=== PATIENT | female | born 1995 | race Caucasian/White ===

== ENCOUNTER 2018-05-01 00:20 | Emergency (ER) | payer MEDICAID, OTHER ==
[~2018-05-01] VITALS: Ht 160 cm; Wt 55.3 kg
[2018-05-01 00:30] VITALS: BP 120/72
--- NOTE | 2018-05-01 00:36 | NUR ---
PT AMBULATED TO BED 7 WITH VSS.
--- NOTE | 2018-05-01 00:42 | NUR ---
Luz miranda in ED - 05/01/18 at 0042 by ALIDA PT AMBULATED TO BED 07.
--- NOTE | 2018-05-01 00:50 | NUR ---
22/F CAME IN ED WITH BROTHER, C/O 10/10 PRESSURE-LIKE INTERMITTENT L SIDED AND L PERIORBITAL HEADACHE, X1 MONTH WORSENING. PT REPORTS INTERMITTENT L EYE FOGGY VISION, AND DIZZINESS. PT REPORTS HAVING AN MRI, AND WAS ONLY RX PAIN MEDS. PT REPORTS TAKING NAPROXEN, XANAX AND TYLENOL #3 WITH LITTLE RELIEF. AOX4, AMBULATORY, RR EVEN AND UNLABORED. PT SPEECH CLEAR, NO FACIAL DROP. HX MIGRAINE, ASTHMA, ANXIETY
[2018-05-01] MEDS ORDERED: NACL 0.9% 1,000 ML IV ONE (01:45)
[2018-05-01] MEDS ORDERED: METOCLOPRAMIDE 10 MG/2 ML INJ VIAL IVP ONE (01:45)
[2018-05-01] MEDS ORDERED: ACETAMINOPHEN EXTRA STRENGTH 500 MG TAB PO ONE (01:45)
[2018-05-01] MEDS ORDERED: diphenhydrAMINE 50 MG/ML VIAL IVP ONE (01:45)
[2018-05-01 02:06] LABS: BASOPHILS % (AUTO) 0.4 % (0.0-2.0); EOSINOPHILS # (AUTO) 0.1 K/uL (0-0.4); EOSINOPHILS % (AUTO) 0.8 % (0.0-4.0); HEMATOCRIT 38.6 % (36-48); HEMOGLOBIN 12.7 g/dL (12.0-16.0); LYMPHOCYTES # (AUTO) 2.5 K/uL (2.5-16.5); LYMPHOCYTES % (AUTO) 32.2 % (20.5-51.1); MEAN CORPUSCULAR HEMOGLOBIN 30 pg (27-31); MEAN CORPUSCULAR HGB CONC 33 g/dL (33-37); MEAN CORPUSCULAR VOLUME 90.1 fL (80-94); MONOCYTES # (AUTO) 0.7 K/uL (0.8-1.0); MONOCYTES % (AUTO) 9.6 % (1.7-9.3); NEUTROPHILS # (AUTO) 4.3 K/uL (1.8-7.7); PLATELET COUNT (AUTO) 233 K/uL (140-450); RED BLOOD CELL COUNT(AUTO) 4.28 MIL/uL (4.20-5.40); RED CELL DISTRIBUTION WIDTH 12.9 % (11.6-13.7); WHITE BLOOD COUNT (AUTO) 7.6 K/uL (4.8-10.8)
[2018-05-01 02:15] LABS: ANION GAP 6.8 (8-16); CREATININE 0.9 mg/dL (0.6-1.3); POTASSIUM 3.8 mmol/L (3.5-5.1)
[2018-05-01 02:21] LABS: ALBUMIN 3.6 g/dL (3.4-5.0); TOTAL BILIRUBIN 0.3 mg/dL (0.0-1.0)
--- NOTE | 2018-05-01 02:30 | NUR ---
PT FAMILY/FRIEND AT BEDSIDE. PT SLEEPING COMFORTABLY IN BED, AROUSABLE TO NAME. PT REPORTS 7/10 L SIDED HEADACHE, REPORTS IMPROVEMENT AFTER MEDS. VSS, ALL NEEDS MET AT THIS TIME.
--- NOTE | 2018-05-01 02:35 | NUR ---
PT TAKEN TO CT
[2018-05-01 03:47] VITALS: BP 104/58
--- NOTE | 2018-05-01 03:47 | NUR ---
Patient discharged with v/s stable. Written and verbal after care instructions given and explained. Patient verbalized understanding. Ambulatory with steady gait. All questions addressed prior to discharge. Advised to follow up with PMD.
== END 2018-05-01 03:47 | disposition home or self-care (01) ==
LOC: MED 00:20
DX: R51 Headache (principal); F41.9 Anxiety disorder, unspecified; Z88.5 Allergy status to narcotic agent
CPT/HCPCS: 36415; 70450; 80053; 81025; 85025; 96361; 96374; 96375; 99284; J1200; J2765; J7030

== ENCOUNTER 2018-06-09 00:54 | Emergency (ER) | payer OTHER ==
[~2018-06-09] VITALS: Ht 160 cm; Wt 55.3 kg
[2018-06-09 01:02] VITALS: BP 108/65
--- NOTE | 2018-06-09 01:02 | NUR ---
TO BED # 5 AMBULATORY, REPORT GIVEN TO PRINCE REYNOSO
--- NOTE | 2018-06-09 01:09 | NUR ---
PT TAKEN TO CHAIR E
--- NOTE | 2018-06-09 01:21 | NUR ---
PT MOVED TO ER BED 8
--- NOTE | 2018-06-09 01:30 | NUR ---
PT BIB SELF C/O LEFT FLANK PAIN RADIATING ACROSS BACK AND ABD W/ "BROWN DISCHARGE". PT DENIES TRAUMA TO AREA. PT LAYING IN BED BROTHER AT BEDSIDE, PT APPEARS TO BE IN NO ACUTE DISTRESS. DENIES UTI SYMPTOMS, PT TOOK TYLENOL AT HOME W/ MINIMAL RELIEF. PMH KIDNEY STONES
--- NOTE | 2018-06-09 02:26 | NUR ---
Dr. Weiss evaluating patient at bedside.
[2018-06-09] MEDS ORDERED: KETOROLAC 30 MG/ML VIAL IM ONE (02:40)
--- NOTE | 2018-06-09 02:50 | NUR ---
PT TO CT SCAN VIA WHEELCHAIR
[2018-06-09 03:17] LABS: BILIRUBIN,URINE NEGATIVE (NEGATIVE); BLOOD, URINE 3+ (NEGATIVE); COLOR,URINE YELLOW (YELLOW); LEUKOCYTE ESTERASE ,URINE 1+ (NEGATIVE); NITRITE, URINE NEGATIVE (NEGATIVE); UGLUCOSE NEGATIVE (NEGATIVE)
[2018-06-09 03:20] LABS: APPEARANCE,URINE SLIGHTLY HAZY (CLEAR)
[2018-06-09 03:58] LABS: ALBUMIN 4.3 g/dL (3.4-5.0); CREATININE 0.8 mg/dL (0.6-1.3); TOTAL BILIRUBIN 0.3 mg/dL (0.0-1.0)
--- NOTE | 2018-06-09 04:08 | NUR ---
Dr. Weiss evaluating patient with female hosiery knitter RN Vishnu Farrell
--- NOTE | 2018-06-09 04:08 | NUR ---
Pelvic exam performed by DR NYE with MYSELF at bedside for entire examination. Patient tolerated procedure WELL. Patient assisted to position of comfort after examination.
[2018-06-09 04:11] LABS: POTASSIUM 3.5 mmol/L (3.5-5.1)
[2018-06-09 04:12] LABS: ANION GAP 10.3 (8-16); CARBON DIOXIDE 28.2 mmol/L (21-32)
[2018-06-09 04:28] LABS: BASOPHILS % (AUTO) 0.5 % (0.0-2.0); EOSINOPHILS # (AUTO) 0.1 K/uL (0-0.4); EOSINOPHILS % (AUTO) 1.1 % (0.0-4.0); HEMOGLOBIN 13.6 g/dL (12.0-16.0); LYMPHOCYTES # (AUTO) 2.5 K/uL (2.5-16.5); LYMPHOCYTES % (AUTO) 33.9 % (20.5-51.1); MEAN CORPUSCULAR HEMOGLOBIN 29 pg (27-31); MEAN CORPUSCULAR HGB CONC 32 g/dL (33-37); MEAN CORPUSCULAR VOLUME 90.3 fL (80-94); MONOCYTES # (AUTO) 0.6 K/uL (0.8-1.0); MONOCYTES % (AUTO) 8.6 % (1.7-9.3); NEUTROPHILS # (AUTO) 4.1 K/uL (1.8-7.7); NEUTROPHILS % (AUTO) 55.9 % (42.2-75.2); PLATELET COUNT (AUTO) 240 K/uL (140-450); RED BLOOD CELL COUNT(AUTO) 4.65 MIL/uL (4.20-5.40); RED CELL DISTRIBUTION WIDTH 12.9 % (11.6-13.7); WHITE BLOOD COUNT (AUTO) 7.3 K/uL (4.8-10.8)
[2018-06-09 05:13] LABS: RBC,URINE 0-5 (RARE) /HPF (0-5); WBC,URINE 0-5 (RARE) /HPF (0-5)
--- NOTE | 2018-06-09 06:17 | NUR ---
Patient discharged with v/s stable. Written and verbal after care instructions given and explained. Patient alert, oriented and verbalized understanding of instructions. Ambulatory with steady gait. All questions addressed prior to discharge. ID band removed. Patient advised to follow up with PMD. Rx of CIPRO, NAPROSYN given. Patient educated on indication of medication including possible reaction and side effects. Opportunity to ask questions provided and answered.
[2018-06-09 06:18] VITALS: BP 110/62
[2018-06-12 07:15] LABS: CHLAMYDIA TRACHOMATIS AMP DNA Negative (Negative)
== END 2018-06-09 06:17 | disposition home or self-care (01) ==
LOC: MED 00:54
DX: N39.0 Urinary tract infection, site not specified (principal); J45.909 Unspecified asthma, uncomplicated; Z88.5 Allergy status to narcotic agent
CPT/HCPCS: 36415; 74176; 80053; 81001; 81025; 83690; 85025; 87086; 87210; 99284; J1885; 87491

== ENCOUNTER 2019-01-17 07:53 | Emergency (ER) | payer OTHER ==
[~2019-01-17] VITALS: Ht 160 cm; Wt 64.0 kg
[2019-01-17 08:10] VITALS: BP 114/60
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
--- NOTE | 2019-01-17 08:29 | NUR ---
XRAY AT BEDSIDE.
--- NOTE | 2019-01-17 08:30 | NUR ---
Luz miranda in [facility] - 01/17/19 at 0833 by LISSA X-RAY AT BEDSIDE AT THIS TIME.
[2019-01-17 09:18] VITALS: BP 120/55
== END 2019-01-17 09:16 | disposition home or self-care (01) ==
LOC: MED 07:53
DX: G62.9 Polyneuropathy, unspecified (principal); M79.602 Pain in left arm; J45.909 Unspecified asthma, uncomplicated; Z88.5 Allergy status to narcotic agent; V23.5XXA Motorcycle passenger injured in collision with car, pick-up truck or van in traffic accident, initial encounter; Y93.55 Activity, bike riding; Y92.411 Interstate highway as the place of occurrence of the external cause; Y99.8 Other external cause status
CPT/HCPCS: 73030; 73130; 99283; Q0092

== ENCOUNTER 2019-02-16 01:06 | Emergency (ER) | payer OTHER ==
[~2019-02-16] VITALS: Ht 160 cm; Wt 63.5 kg
[2019-02-16 01:10] VITALS: BP 116/63
--- NOTE | 2019-02-16 01:13 | NUR ---
TO LOBBY A/W BED AMBULATORY
--- NOTE | 2019-02-16 03:30 | NUR ---
PATIENT CALLED TO PUT ON BED NO RESPONSE PATIENT LEFT WITHOUT BEING SEEN BY DR. MANLEY. NO FURTHER CARE PROVIDED FOR PATIENT.
--- NOTE | 2019-02-16 03:35 | NUR ---
CALLED FOR THE SECOND TIME NO RESPONSE
--- NOTE | 2019-02-16 03:40 | NUR ---
CALLED FOR THE THIRD TIME NO RESPONSE
== END 2019-02-16 03:30 | disposition left against medical advice (07) ==
LOC: MED 01:06
DX: R06.00 Dyspnea, unspecified (principal); M54.9 Dorsalgia, unspecified; R07.9 Chest pain, unspecified; R05 Cough; Z53.21 Procedure and treatment not carried out due to patient leaving prior to being seen by health care provider

== ENCOUNTER 2020-01-11 03:29 | Emergency (ER) | payer OTHER ==
[~2020-01-11] VITALS: Ht 160 cm; Wt 68.9 kg
[2020-01-11 03:44] VITALS: BP 103/50
[2020-01-11 04:30] VITALS: BP 103/50
== END 2020-01-11 04:30 | disposition home or self-care (01) ==
LOC: MED 03:29
DX: H00.011 Hordeolum externum right upper eyelid (principal); F41.9 Anxiety disorder, unspecified; J45.909 Unspecified asthma, uncomplicated; K21.9 Gastro-esophageal reflux disease without esophagitis; Z88.6 Allergy status to analgesic agent
CPT/HCPCS: 99283

== ENCOUNTER 2020-08-14 02:28 | Emergency (ER) | payer OTHER ==
[~2020-08-14] VITALS: Ht 160 cm; Wt 72.6 kg
[2020-08-14 02:34] VITALS: BP 117/68
[2020-08-14] MEDS ORDERED: DICYCLOMINE HCL LIQUID 20 MG, ALUMINUM HYD/MAG/SIMETHICONE 30 ML, LIDOCAINE VISCOUS 2% ... PO ONE ×3 (03:20)
[2020-08-14] MEDS ORDERED: LIDOCAINE VISCOUS 2% 20 ML UDC ONE (03:24)
[2020-08-14] MEDS ORDERED: ALUMINUM HYD/MAG/SIMETHICONE 30 ML UDC ONE (03:25)
[2020-08-14] MEDS ORDERED: DICYCLOMINE HCL LIQUID 10 MG/5 ML UDC ONE (03:25)
[2020-08-14] MEDS ORDERED: KETOROLAC 30 MG/ML VIAL IM ONE (04:55)
[2020-08-14] MEDS ORDERED: [UNRECOGNIZED DRUG - CODE] PO (06:02)
[2020-08-14] MEDS ORDERED: MAG-27 PO (06:02)
[2020-08-14 06:11] VITALS: BP 117/68
== END 2020-08-14 06:13 | disposition home or self-care (01) ==
LOC: MED 02:28
DX: R10.13 Epigastric pain (principal); J45.909 Unspecified asthma, uncomplicated; K21.9 Gastro-esophageal reflux disease without esophagitis; Z88.5 Allergy status to narcotic agent
CPT/HCPCS: 71045; 81002; 81025; 93005; 96372; 99283; J1885